=== PATIENT | female | born 1975 | race Native Hawaiian/Other Pacific Islander ===

== ENCOUNTER 2024-08-17 09:09 | Emergency (ER) | payer OTHER, SELFPAY ==
[2024-08-17 09:21] VITALS: BP 116/70
--- NOTE | 2024-08-17 10:29 | ED.GENMED ---
History of Present Illness
General
Chief Complaint: Fall
Source: patient
Exam Limitations: none
Time Seen by Provider: 08/17/24 09:55
Nursing documentation reviewed up to this point in time: agreed with
History of Present Illness
History of Present Illness:
48 y/o F with h/o asthma
here with multiple complaints after fall
tripped on uneven pavement at 830 am this morning on walk to work. landed on her L side after twisting her ankle on the way down
she has pain in her L toes, L ankle, L hip, L wrist and L shoulder
she is able to weight bear
no head strike, neck pain, headache, cp, sob, rib pain,
no AC
nothing taken for pain
most significant pain is L wrist
Phy Exam
Physical Exam
Physical Exam:
GENERAL: Alert , in no apparent distress
HEAD: NCAT
NECK: no midline tenderness, active ROM intact, no paraspinal muscle tenderness;
EYE: pupils equal and reactive, EOMs intact.
ENT: o/p clr, mmm. no hemotympanum
CARDIAC: Regular rate and rhythm, no edema
LUNGS: Clear breath sounds bilaterally, no acute respiratory distress, no wheezes/rales/rhonchi
ABDOMEN: Soft, without focal tenderness, no r/g, no cvat
NEUROLOGICAL: Alert and oriented, no focal neuro deficits, CN intact, 5/5 strength, sensation intact
SKIN: Warm and dry,
Back: No midline tenderness, mild left paraspinal muscle tenderness on the left side, no bruising, full range of motion
MUSCULOSKELETAL: Left hip lateral aspect slightly tender, no bruising, pain with hip flexion but can fully flex and rotate the hip, negative straight leg raise bilaterally, normal strength and sensation in her legs, normal pulses, left ankle no
swelling, mild tenderness laterally, pain with eversion and inversion, normal-appearing foot with slight tenderness to the third and fourth toes, no swelling
Left wrist slightly swollen dorsally, nondeformed, limited painful flexion and extension, elbow was normal without any tenderness, left shoulder mild anterior lateral humeral head tenderness, full range of motion
PSYCH: Normal and appropriate interaction.
Course
Orders/Labs/Results
Orders:
Orders
08/17/24 10:19
Ibuprofen [Motrin] 600 mg PO NOW STA
Ankle, left 3 view CR [CR Ankle - Left Min 3 Views ] Urgent
Comment:
Reason For Exam: fall twisted ankle
CR Foot - Left Min 3 Views Urgent
Comment:
Reason For Exam: fall L 3rd and 4th toe pain
CR Shoulder, Trauma - Left Urgent
Comment:
Reason For Exam: falls sims pain
CR Wrist - Left Min 3 Views Urgent
Comment:
Reason For Exam: fallwrist pain
Hip, Left 2-3 Views [CR Hip - LT w/wo Pel 2-3 Vw*] Urgent
Comment:
Reason For Exam: fall hip pain
Include a pelvis x-ray?: Yes
Vital Signs
Initial and Last Documented VS:
Initial Vital Signs
Temp Pulse Resp BP Pulse Ox
37.1 C 92 16 116/70 98
08/17/24 09:21 08/17/24 09:21 08/17/24 09:21 08/17/24 09:21 08/17/24 09:21
Last Documented Vital Signs
Temp Pulse Resp BP Pulse Ox
37.1 C 92 16 132/74 98
08/17/24 09:21 08/17/24 09:21 08/17/24 09:21 08/17/24 11:40 08/17/24 11:40
MDM/Problems Addressed
Differential Diagnosis Includes:
contusion, sprain
MDM/Problems Addressed:
48 y/o F with multiple complaints after mechanical fall
no head strike
no LOC
no thinners
L wrist, shoulder, hip, ankle, foot
on exam pt has point tenderness to L humeral head but is able to range thes houlder; left wrist slightly tender with limited rom
no deformity
left ankle some pain with range of motrin
left foot 3rd/4th toes tendenr
left hip with tendernses laterally, no bruising; pain with flexion
able to weight bear
Back nontender midline, negative straight leg raise, normal strength and sensation, no concerns for cauda equina or lumbar fracture, patient is ambulatory
xrays indep reviewed and neg forfx
d/c home nsaids, rice, wrist splint, ankle jono wrap
*Critical Care Note
Total Time (30-74mins, 75-104mins- exclusive of procedures): Not Applicable
ED Attending Note
-
Portions of this chart may have been created with voice recognition software.� Occasional wrong word or��sound alike� substitutions may have occurred due to the inherent limitations of voice recognition software.
Discharge Plan
Departure
Patient Disposition: Home (Routine Discharge)
Date of Disposition: 08/17/24
Time of Disposition: 11:14
Patient with high blood pressure during this ER visit?: No
Condition: Fair
Covid-19: Not Applicable
Discharge Problem:
Fall, Left ankle sprain, Left wrist sprain, Contusion of hip, left
Instructions: Contusion (DC), Wrist Sprain ED
Referrals:
Chema Aponte MD [Active] - Follow up in 1 week (ortho)
Stand Alone Forms: Return to Work
Activity Restrictions/Additional Instructions:
You had no evidence of fracture to your left shoulder, wrist, hip, ankle, foot. Ice off-and-on, elevate today. Wear the Jono wrap on your ankle during the day, remove at night. Take ibuprofen every 8 hours as needed for pain. Wear the wrist
splint for a few days, after a few days you should be getting better. If you are still having symptoms you can follow-up with orthopedics. Return for any concerns
Interventions
Interventions:
*Risk Screen - Suicide Last Done: 08/17/24 11:40
*General Assessment Last Done: 08/17/24 11:35
*Neglect/Abuse Screening Last Done: 08/17/24 11:35
ED- Fall Risk Assessment Last Done: 08/17/24 11:40
*ED COVID-19 Vaccine History Last Done: 08/17/24 11:35
*Nursing Disposition Last Done: 08/17/24 11:40
ED-Musculoskeletal Assessment Last Done: 08/17/24 11:35
ED- Neurological Assessment Last Done: 08/17/24 11:35
ED-Skin Assessment Last Done: 08/17/24 11:35
Discharge Date and Time
Discharge Date/Time: 08/17/24 11:41
Print Language: GREEK
[2024-08-17] MEDS: MOTRIN 600 MG PO (10:38)
[2024-08-17 11:40] VITALS: BP 132/74
== END 2024-08-17 11:41 | disposition home or self-care (01) ==
LOC: EMR 09:09
PROVIDERS: EMERGENCY PHYSICIAN Emergency Medicine; FAMILY PHYSICIAN Anesthesiology
DX: S93.402A Sprain of unspecified ligament of left ankle, initial encounter (principal); S63.502A Unspecified sprain of left wrist, initial encounter; S70.02XA Contusion of left hip, initial encounter; X50.1XXA Overexertion from prolonged static or awkward postures, initial encounter; J45.909 Unspecified asthma, uncomplicated
CPT/HCPCS: 99284; 29125; 73030; 73110; 73502; 73610; 73630